=== PATIENT | male | born 1955 | race Asian ===

== ENCOUNTER 2016-10-29 07:43 | Outpatient (CLI) | payer OTHER ==
[~2016-10-29 07:43] MED LIST: ATEN25TA21 PO; ENALAPRIL5 MG PO; MULTIVITAMI1 PO; [UNRECOGNIZED DRUG - CODE] PO
[2016-10-29 09:01] LABS: PLATELET COUNT 223 K/uL (142-355)
[2016-10-29 09:21] LABS: POTASSIUM 3.8 mmol/L (3.6-5.2); SODIUM 140 mmol/L (136-145)
== END 2016-10-29 08:45 | disposition home or self-care (01) ==
LOC: LABW 07:43
PROVIDERS: Family Medicine
DX: I10 Essential (primary) hypertension (principal); B19.20 Unspecified viral hepatitis C without hepatic coma; D64.89 Other specified anemias; N52.8 Other male erectile dysfunction; E55.9 Vitamin D deficiency, unspecified
CPT/HCPCS: 36415; 80053; 80061; 81000; 82043; 82306; 82570; 83735; 84439; 84443; 84550; 85027

== ENCOUNTER 2017-03-02 10:55 | Outpatient (CLI) | payer OTHER | END 2017-03-02 19:17 | disposition home or self-care (01) | LOC: LABW 10:55 | DX: R35.1 Nocturia (principal) | CPT/HCPCS: 36415; 84153 ==

== ENCOUNTER 2018-01-08 09:13 | Outpatient (CLI) | payer OTHER ==
[2018-01-08 10:12] LABS: PLATELET COUNT 211 K/uL (142-355)
[2018-01-08 10:31] LABS: POTASSIUM 4.1 mmol/L (3.6-5.2)
== END 2018-01-08 20:16 | disposition home or self-care (01) ==
LOC: LABW 09:13
PROVIDERS: Family Medicine
DX: Z00.01 Encounter for general adult medical examination with abnormal findings (principal); Z13.6 Encounter for screening for cardiovascular disorders; Z12.11 Encounter for screening for malignant neoplasm of colon; R35.1 Nocturia
CPT/HCPCS: 36415; 80053; 80061; 82270; 84154; 85027

== ENCOUNTER 2018-05-02 15:21 | Emergency (ER) | payer OTHER ==
[~2018-05-02] VITALS: Ht 190.5 cm; Wt 93.9 kg
[2018-05-02 15:34] VITALS: TEMP 99.6
[2018-05-02] MEDS ORDERED: MOBIC7.5 M1 PO (15:44)
[2018-05-02] MEDS ORDERED: HYDR25TA60 PO (15:44)
[2018-05-02 16:37] VITALS: BP 128/81
== END 2018-05-02 16:37 | disposition home or self-care (01) ==
LOC: ED 15:21
DX: J11.1 Influenza due to unidentified influenza virus with other respiratory manifestations (principal)
CPT/HCPCS: 87502; 99282

== ENCOUNTER 2018-08-30 07:39 | Emergency (ER) | payer OTHER ==
[~2018-08-30] VITALS: Ht 190.5 cm; Wt 93.9 kg
[~2018-08-30 07:39] MED LIST changes: +HYDR25TA60 PO; +MOBIC7.5 M1 PO
[2018-08-30 07:43] VITALS: BP 138/99; TEMP 97.7
== END 2018-08-30 08:30 | disposition home or self-care (01) ==
LOC: ED 07:39
DX: H60.8X2 Other otitis externa, left ear (principal)
CPT/HCPCS: 99281